=== PATIENT | female | born 1955 | race Caucasian/White ===

== ENCOUNTER → 2020-06-07 15:19 | Outpatient (CLI) | payer MEDICARE, SELFPAY ==
--- NOTE | ~2020-06-07 | XR_ITS ---
XR thoracic spine 2V DATE: 06/07/2020 15:42 INDICATION: Thoracic back pain. Lumbago. TECHNIQUE: Standing AP and lateral and swimmer views COMPARISON: None FINDINGS: There is diffuse osteopenia. Mild dextroscoliosis of the thoracic spine. No fracture or bone destruction is evident. The thoracic pedicles are intact. No paraspinal soft tiss ue thickening. Moderate degenerative disc disease at C4-5, C5-C6 and C6-7. IMPRESSION: Mild dextroscoliosis Diffuse osteopenia Reviewed, dictated and finalized at location A.
--- NOTE | ~2020-06-07 | XR_ITS ---
XR lumbar spine min 4V DATE: 06/07/2020 15:42 INDICATION: Lumbago; lumbar spine pain. TECHNIQUE: Standing AP, lateral and coned lateral lumbosacral views. Standing flexion and extension l ateral views. COMPARISON: None FINDINGS: Diffuse osteopenia. There is levoscoliosis of the thoracic and lumbar spine. Mild to moderate anterior wedge compression fracture deformity of L2. No fracture or bone destruction is noted otherwise. Grade 1 anterolisthesis at L1-2 and L4-5. Moderate to moderately severe degenerative disc disease at L1-2, L2-3, L3-4, L4-5. No instability is evident on flexion or extension. The sacroiliac joints are intact. Postoperative changes of left and right upper quadrants. IMPRESSION: L2 compression fracture deformity Multilevel degenerative disc disease Diffuse osteopenia Reviewed, dictated and finalized at location A.
== END ==
PROVIDERS: PCP Family Medicine; Visit Provider Nurse Practitioner Family
DX: M51.36 Other intervertebral disc degeneration, lumbar region (principal); M85.88 Other specified disorders of bone density and structure, other site
CPT/HCPCS: 72070; 72110

== ENCOUNTER → 2020-06-08 12:25 | Outpatient (CLI) | payer MEDICARE, SELFPAY ==
--- NOTE | ~2020-06-08 | MR_ITS ---
EXAMINATION: MR cervical spine wo con EXAM DATE: 06/08/2020 13:29 INDICATION: Cervical radiculopathy. Neck pain. Right arm pain. TECHNIQUE: Multi-sequential, multiplanar MR images of the cervical spine were obtained without contra st. Axial T2, axial T2 MERGE sequence. Sagittal T1, T2, T2 fat saturation images also obtained. Th ere is no prior study for comparison. FINDINGS: There is moderate reversal of normal cervical lordosis which could be degenerative, positi onal or spasm. There is moderate loss of the C6-7 disc height, mild to moderate at the 2 levels above . The spinal cord signal intensity and intrinsic morphology is normal. Cervicomedullary junction is n ormal in appearance. There are no suspicious marrow signal abnormalities. Paraspinal soft tissue is u nremarkable. Level by level evaluation: C2-C3: Disc does not extend beyond the endplate margin. Uncovertebral joint arthropathy: Mild left. Facet joint arthropathy: Mild bilateral. Neural foraminal stenosis: No stenosis. Central canal stenosis: No stenosis. C3-C4: Disc does not extend beyond the endplate margin. Uncovertebral joint arthropathy: Mild bilateral. Facet joint arthropathy: Moderate left, mild right. Neural foraminal stenosis: Mild left. Central canal stenosis: No stenosis. C4-C5: Disc does not extend beyond the endplate margin. Uncovertebral joint arthropathy: Mild left. Facet joint arthropathy: Mild bilateral. Neural foraminal stenosis: No stenosis. Central canal stenosis: No stenosis. C5-C6: There is a mild diffuse disc bulge. Uncovertebral joint arthropathy: Moderate left, mild to moderate right. Facet joint arthropathy: Mild bilateral. Neural foraminal stenosis: Moderate left, mild to moderate right. Central canal stenosis: Mild. C6-C7: There is a mild diffuse disc bulge. Uncovertebral joint arthropathy: Moderate left, mild to moderate right. Facet joint arthropathy: Mild bilateral. Neural foraminal stenosis: Mild left. Central canal stenosis: Minimal. C7-T1: Tiny left central protrusion. Uncovertebral joint arthropathy: Mild to moderate left, mild right. Facet joint arthropathy: Mild to moderate bilateral. Neural foraminal stenosis: Mild left. Central canal stenosis: No stenosis. IMPRESSION: 1. Moderate reversal normal cervical lordosis. 2. Moderate left neural foraminal stenosis C5-6 and 6-7. Reviewed, dictated and finalized at location A.
== END ==
PROVIDERS: PCP Family Medicine; Visit Provider Nurse Practitioner Family
DX: M54.6 Pain in thoracic spine (principal); M54.5 Low back pain; M54.12 Radiculopathy, cervical region
CPT/HCPCS: 72141

== ENCOUNTER → 2020-06-15 09:01 | Outpatient (CLI) | payer MEDICARE, SELFPAY ==
--- NOTE | ~2020-06-15 | MR_ITS ---
EXAMINATION: MR lumbar spine wo con EXAM DATE: 06/15/2020 09:46 INDICATION: Compression fracture of L2. Low back pain intermittent. TECHNIQUE: Multi-sequential, multiplanar MR images of the lumbar spine were obtained without contrast . Sagittal T1, T2, T2 fat saturation images. Axial T2 weighted images. Correlation is made to lumba r x-ray 06/07/2020. FINDINGS: There is mild compression fracture L2, mild anterior wedging of this level, but without evon ma. This is consistent with an old fracture. There are several vertebral body hemangiomas. The conus medullaris terminates at the L1 level and has normal signal intensity and morphology. Straightening of normal lumbar lordosis. There is moderate disc disease at L4-5, mild to moderate L2-L4 and mild at the other levels. There is 3 mm retrolisthesis L5 on S1. Paraspinal soft tissue is unremarkable. Level by level evaluation: T12-L1: Disc does not extend beyond the endplate margin. Facet arthropathy: Mild right. Neural foraminal stenosis: No stenosis. Central canal stenosis: No stenosis. L1-L2: There is a mild diffuse disc bulge. Facet arthropathy: Mild to moderate right, mild left. Neural foraminal stenosis: No stenosis. Central canal stenosis: No stenosis. L2-L3: There is a mild diffuse disc bulge. Facet arthropathy: Mild to moderate right, mild left. Neural foraminal stenosis: Mild bilateral. Central canal stenosis: Mild. L3-L4: There is a mild diffuse disc bulge. Facet arthropathy: Mild to moderate bilateral. Neural foraminal stenosis: Mild to moderate bilateral. Central canal stenosis: Mild. L4-L5: There is a mild diffuse disc bulge. Facet arthropathy: Mild to moderate bilateral. Neural foraminal stenosis: Moderate left, mild to moderate right. Central canal stenosis: Mild. L5-S1: There is a mild diffuse disc bulge. Facet arthropathy: Mild bilateral. Neural foraminal stenosis: Moderate right, mild to moderate left. Central canal stenosis: No stenosis. IMPRESSION: 1. Overall mild to moderate lumbar spondylosis. 2. Chronic L2 compression fracture. Reviewed, dictated and finalized at location A.
== END ==
PROVIDERS: PCP Family Medicine; Visit Provider Nurse Practitioner Family
DX: S32.020A Wedge compression fracture of second lumbar vertebra, initial encounter for closed fracture (principal); X58.XXXA Exposure to other specified factors, initial encounter; M47.896 Other spondylosis, lumbar region
CPT/HCPCS: 72148